=== PATIENT | male | born 1990 | race Caucasian/White ===

== ENCOUNTER 2017-03-20 09:44 | Emergency (ER) | payer BC, OTHER ==
--- NOTE | ~2017-03-20 | CR113 ---
[facility]. [facility] A Service [facility] RADIOLOGY TEXT RESULTS PATIENT: GIOVANNA BECKER JR LOCATION: SED : [birth year] UNIT #: [id number] AGE: [address]: CELESTINA FARMER SEX: M ORDER DR: [id number] [place] [id number] E MR#: [id number] Acc #: [id number] NAME: GIOVANNA BECKER JR : 1990 SEX: M STUDY DATE/TIME: 03/20/2017 9:51 UNIT: SED ROOM: STUDY DESCRIPTION: CR Finger 2 View 4Th Rt Attending Physician: Celestina Farmer Ordering Physician: Nish Velasquez M.D. Primary Care Physician: Digna Cloud M.D. MEDICAL IMAGING REPORT This report is preliminary unless electronic signature is present. EXAM 3 views of the right fourth finger. DATE 03/20/2017 HISTORY Smashed right fourth finger in a car door this morning. Pain, bruising. COMPARISON None. FINDINGS No acute fracture or joint malalignment is seen within the right fourth finger and no retained radiopaque foreign body is seen within the soft tissues. Incidental note is made of orthopedic plate and screw fixation of the midshaft of the fifth metacarpal. IMPRESSION 1. Normal 3 views of the right fourth finger. Dictated by... Jaclyn Anderson M.D. THIS IS AN ELECTRONICALLY VERIFIED REPORT Jaclyn Anderson M.D. at 03/21/2017 2:20 PM ALEM/yuri TD: 03/20/2017 14:26 JOB #: [id number] [facility]. [facility] A Service [facility] RADIOLOGY TEXT RESULTS PATIENT: GIOVANNA BECKER JR LOCATION: SED : 90 UNIT #: [id number] AGE: [address]: CELESTINA FARMER SEX: M ORDER DR: MEDICAL IMAGING REPORT Page 1 of 1
[~2017-03-20 09:44] MED LIST: ACETAMINOPHEN PO; NO MEDICATIONS
== END 2017-03-20 10:51 | disposition home or self-care (01) ==
LOC: SED 09:44
DX: S60.041A Contusion of right ring finger without damage to nail, initial encounter (principal); F17.210 Nicotine dependence, cigarettes, uncomplicated; Z88.5 Allergy status to narcotic agent; W23.0XXA Caught, crushed, jammed, or pinched between moving objects, initial encounter; Y92.009 Unspecified place in unspecified non-institutional (private) residence as the place of occurrence of the external cause
CPT/HCPCS: 29130; 73140; 99283

== ENCOUNTER 2017-03-22 01:22 | Emergency (ER) | payer BC, OTHER ==
[~2017-03-22] VITALS: Ht 190.5 cm; Wt 79.5 kg
== END 2017-03-22 02:08 | disposition home or self-care (01) ==
LOC: SED 01:22
DX: S60.041A Contusion of right ring finger without damage to nail, initial encounter (principal); F17.210 Nicotine dependence, cigarettes, uncomplicated; X58.XXXA Exposure to other specified factors, initial encounter
CPT/HCPCS: 99283